=== PATIENT | female | born 1990 | race Caucasian/White ===

== ENCOUNTER 2017-04-19 18:45 | Emergency (ER) | payer MEDICAID ==
[2017-04-19 18:56] VITALS: BP 131/84; PULSE 80; TEMP 99.1; O2SAT 96
--- NOTE | 2017-04-19 19:20 | EDPHY ---
H & P Stated Complaint: Rt foot pain, bent it back yesterday Time Seen by Provider: 04/19/17 19:12 HPI/ROS: CHIEF COMPLAINT: Ft contusion HISTORY OF PRESENT ILLNESS: The patient is a 26-year-old with history of developmental delay who is here with her behavioral health case manager. She has bruising to the lateral aspect of her right foot for unknown reasons. She does not remember injuring it. She 1st noticed a bruise yesterday. She states that she has had a broken bone before and this does not feel that bad. She is walking on it without difficulty. No fevers or infections. No history of bleeding disorder. No anticoagulants. REVIEW OF SYSTEMS: Constitutional: denies: chills, fever, recent illness, recent injury EENTM: denies: blurred vision, double vision, nose congestion Respiratory: denies: cough, shortness of breath Cardiac: denies: chest pain, irregular heart rate, lightheadedness, palpitations Gastrointestinal/Abdominal: denies: abdominal pain, diarrhea, nausea, vomiting, blood streaked stools Genitourinary: denies: dysuria, frequency, hematuria, pain Musculoskeletal: See HPI Skin: denies: lesions, rash, jaundice, bruising Neurological: denies: headache, numbness, paresthesia, tingling, dizziness, weakness Hematologic/Lymphatic: denies: blood clots, easy bleeding, easy bruising Immunologic/allergic: denies: HIV/AIDS, transplant EXAM: GENERAL: Well-appearing, well-nourished and in no acute distress. HEAD: Atraumatic, normocephalic. EYES: Pupils equal round and reactive to light, extraocular movements intact, sclera anicteric, conjunctiva are normal. ENT: TMs normal, nares patent, oropharynx clear without exudates. Moist mucous membranes. NECK: Normal range of motion, supple without lymphadenopathy or JVD. LUNGS: Breath sounds clear to auscultation bilaterally and equal. No wheezes rales or rhonchi. HEART: Regular rate and rhythm without murmurs, rubs or gallops. ABDOMEN: Soft, nontender, normoactive bowel sounds. No guarding, no rebound. No masses appreciated. BACK: No CVA tenderness, no spinal tenderness, step-offs or deformities EXTREMITIES: Bruising to lateral aspect of right foot. Minimal swelling. No deformity. Normal sensation and movement distally. Normal capillary refill. No significant tenderness on exam. No ankle pain or tenderness. NEUROLOGICAL: Cranial nerves II through XII grossly intact. Normal speech, normal gait. 5/5 strength, normal movement in all extremities, normal sensation PSYCH: Normal mood, normal affect. SKIN: Warm, dry, normal turgor, no visible rashes or lesions. Source: Patient Exam Limitations: No limitations - Personal History LMP (Females 10-55): Extended Cycle BCP/Inj Current Tetanus/Diphtheria Vaccine: Yes - Medical/Surgical History Hx Asthma: No Hx Chronic Respiratory Disease: No Hx Diabetes: No Hx Cardiac Disease: No Hx Renal Disease: No Hx Cirrhosis: No Hx Alcoholism: No Hx HIV/AIDS: No Hx Splenectomy or Spleen Trauma: No Other PMH: good health. delayed?/lives with care management associate - Family History Significant Family History: No pertinent family hx - Social History Smoking Status: Never smoked Alcohol Use: None Constitutional: Initial Vital Signs Temperature (C) 37.3 C 04/19/17 18:50 Heart Rate 80 04/19/17 18:50 Blood Pressure 131/84 H 04/19/17 18:50 O2 Sat (%) 96 04/19/17 18:50 O2 Delivery Mode Room Air Allergies/Adverse Reactions: No Known Allergies Allergy (Unverified 04/19/17 18:47) Home Medications: Medication Instructions Recorded FLUoxetine [Prozac 20 MG (*)] 04/19/17 Levonorgestrel-Ethin Estradiol 04/19/17 [Aviane-28 Tablet] Medical Decision Making - Diagnostics Imaging Results: Imaging Impressions Foot X-Ray 04/19/17 19:00 Impression: No acute osseous findings. Imaging: Discussed imaging studies w/ bingo caller Radiologist ED Course/Re-evaluation: Patient's x-rays look reassuring. No visible fracture. The patient is able to ambulate. I offered a postop shoe but she declines and would prefer to wear her own. I encouraged rest elevation and ice. She states that this is what she has been doing. We discussed follow-up and indications for returning. 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 Differential Diagnosis: Partial list of the Differential diagnosis considered include but were not limited to; contusion, fracture and although unlikely based on the history and physical exam, I also considered dislocation, vascular injury, nerve injury, infection. I discussed these differential diagnoses and the plan with the patient as well as the usual and expected course. The patient understands that the diagnosis is provisional and that in medicine we are not always correct and that further workup is often warranted. Usual and customary warnings were given. All of the patient's questions were answered. The patient was instructed to return to the emergency department should the symptoms at all worsen or return, otherwise to followup with the physician as we discussed. Departure - Departure Disposition: Home, Routine, Self-Care Clinical Impression: Contusion of right foot Qualifiers: Encounter type: initial encounter Qualified Code(s): S90.31XA - Contusion of right foot, initial encounter Condition: Fair Instructions: Foot Contusion (ED) Additional Instructions: May give Tylenol 2 tablets 325mg every 6 hours, or Ibuprofen 400mg every 6-8 hours as needed pain. You may use both drugs following the instructions on the medication. Referrals: Sidra Jones MD [Primary Care Provider] - As per Instructions Stand Alone Forms: Statement of Treatment
== END 2017-04-19 19:25 | disposition home or self-care (01) ==
LOC: CED 18:45
DX: S90.31XA Contusion of right foot, initial encounter (principal); X58.XXXA Exposure to other specified factors, initial encounter
CPT/HCPCS: 73630-PO

== ENCOUNTER 2018-07-21 19:23 | Emergency (ER) | payer MEDICAID ==
[2018-07-21] MEDS ORDERED: CARBAMIDE PEROXIDE 15 ML OTIC.BTL LEFTEAR ONE (20:02)
== END 2018-07-21 21:08 | disposition home or self-care (01) ==
DX: H61.22 Impacted cerumen, left ear (principal)